=== PATIENT | female | born 1975 | race Two or more races ===

== ENCOUNTER 2017-04-19 15:42 | Emergency (ER) | payer MEDICAID, OTHER ==
[~2017-04-19] VITALS: Ht 165.1 cm; Wt 69.3 kg
[~2017-04-19 15:42] MED LIST: IBUP200C5; SULF-169
[2017-04-19 15:48] VITALS: BP 110/73
[2017-04-19 16:36] LABS: HEMATOCRIT 41.7 % (34.6-47.8); HEMOGLOBIN 13.9 g/dL (11.7-16.4)
[2017-04-19 16:49] LABS: ASPARTATE AMINO TRANSFERASE 14 U/L (15-37); BLOOD UREA NITROGEN 28 mg/dL (7-18)
== END 2017-04-19 18:46 | disposition home or self-care (01) ==
LOC: ED 17:26
DX: K80.50 Calculus of bile duct without cholangitis or cholecystitis without obstruction (principal); Z90.49 Acquired absence of other specified parts of digestive tract; F17.200 Nicotine dependence, unspecified, uncomplicated
CPT/HCPCS: 36415; 76700; 80053; 81003; 83690; 84703; 85025; 99285

== ENCOUNTER 2017-09-15 01:54 | Emergency (ER) | payer MEDICAID, OTHER ==
[2017-09-15] MEDS ORDERED: LORazepam 2 MG/ML, 1ML ONE (02:20)
[2017-09-15] MEDS ORDERED: LORazepam 2 MG/ML, 1ML IM ONE (02:30)
[2017-09-15 04:01] VITALS: BP 104/74
== END 2017-09-15 04:18 | disposition home or self-care (01) ==
LOC: ED 02:41
DX: F41.1 Generalized anxiety disorder (principal); R06.4 Hyperventilation; Z90.49 Acquired absence of other specified parts of digestive tract
CPT/HCPCS: 93005; 96372; 99284; J2060

== ENCOUNTER 2019-07-08 22:50 | Emergency (ER) | payer OTHER ==
[~2019-07-08] VITALS: Ht 157.5 cm; Wt 68.5 kg
[~2019-07-08 22:50] MED LIST changes: +IBUP-1623; -IBUP200C5
[2019-07-08 22:52] VITALS: BP 113/74
[2019-07-08] MEDS ORDERED: PROPARACAINE OPHTH 0.5%, 15ML EACHEYE STA (22:57)
[2019-07-08] MEDS ORDERED: FLUORESCEIN OPHTHALMIC 1 MG STRIP ONE (23:06)
[2019-07-08] MEDS ORDERED: PROPARACAINE OPHTH 0.5%, 15ML ONE (23:06)
[2019-07-08] MEDS ORDERED: HYDROcodone/APAP 5/325 TABLET PO ONE (23:30)
[2019-07-08] MEDS ORDERED: FLUORESCEIN OPHTHALMIC 1 MG STRIP RIGHTEYE ONE (23:30)
[2019-07-08] MEDS ORDERED: HYDROcodone/APAP 5/325 TABLET ONE (23:38)
== END 2019-07-08 23:53 | disposition home or self-care (01) ==
LOC: ED 23:48
DX: H57.11 Ocular pain, right eye (principal)
CPT/HCPCS: 99284

== ENCOUNTER 2020-07-05 12:09 | Emergency (ER) | payer SELFPAY ==
[~2020-07-05] VITALS: Ht 162.6 cm; Wt 67.7 kg
[2020-07-05] MEDS ORDERED: DIPHENHYDRAMINE 50 MG/ML, 1ML IVPush ONE (13:00)
[2020-07-05] MEDS ORDERED: PROCHLORPERAZINE 5 MG/ML, 2ML IVPush ONE (13:00)
[2020-07-05 13:24] LABS: BASOPHILS % (AUTO) 1 % (0-1); EOSINOPHILS % (AUTO) 7 % (1-7); LYMPHOCYTES % (AUTO) 35 % (22-44); MEAN CORPUSCULAR HEMOGLOBIN 29.6 pg (27.0-34.8); MEAN CORPUSCULAR HGB CONC 33.3 g/dL (32.4-35.8); MONOCYTES % (AUTO) 6 % (2-9); NEUTROPHILS % (AUTO) 52 % (42-75); PLATELET COUNT 187 x10^3/uL (130-400); RED BLOOD COUNT 4.66 x10^6/uL (3.82-5.3); RED CELL DISTRIBUTION WIDTH 13.2 % (9.6-15.2)
[2020-07-05 13:25] LABS: MD NO
[2020-07-05 13:33] LABS: ALANINE AMINOTRANSFERASE 18 U/L (12-78); ALBUMIN 3.3 g/dL (3.4-5.0); ANION GAP 3 mmol/L (5-15); CALCIUM 8.6 mg/dL (8.5-10.1); CHLORIDE 111 mmol/L (98-107); CREATININE 0.71 mg/dL (0.55-1.02)
[2020-07-05 13:36] LABS: ALKALINE PHOSPHATASE 77 U/L (45-117); BILIRUBIN,TOTAL 0.5 mg/dL (0.2-1.0); TOTAL PROTEIN 7.3 g/dL (6.4-8.2)
[2020-07-05] MEDS ORDERED: KETOROLAC 30 MG/1 ML IVPush ONE (14:00)
[2020-07-05] MEDS ORDERED: SODIUM CHLORIDE FLUSH 10ML SYR IVF ONE (14:00)
[2020-07-05] MEDS ORDERED: SODIUM CHLORIDE 0.9% 1,000ML IVBOLUS ONE (14:00)
[2020-07-05] MEDS ORDERED: PROCHLORPERAZINE 5 MG/ML, 2ML ONE (14:06)
[2020-07-05] MEDS ORDERED: KETOROLAC 30 MG/1 ML ONE (14:06)
[2020-07-05] MEDS ORDERED: DIPHENHYDRAMINE 50 MG/ML, 1ML ONE (14:06)
--- NOTE | 2020-07-05 14:21 | NUR ---
Pt here for WARE X 7 months. Pt describes pain as sharp, located on R side of head, radiating to neck. No relief.
[2020-07-05] MEDS ORDERED: MORPHINE SULFATE 4 MG/ML, 1ML IVPush PRN (15:30)
--- NOTE | 2020-07-05 15:32 | NUR ---
Pt states pain relief. Refusing any more pain meds at this time. Family at bedside. VS updated.
--- NOTE | 2020-07-05 17:00 | NUR ---
Pt restimg, appears pain free, would like to be dc'd. VS updated.
[2020-07-05 17:53] VITALS: BP 90/59
== END 2020-07-05 17:55 | disposition home or self-care (01) ==
LOC: ED 12:38
DX: G43.711 Chronic migraine without aura, intractable, with status migrainosus (principal); M54.2 Cervicalgia; E78.00 Pure hypercholesterolemia, unspecified; Z90.49 Acquired absence of other specified parts of digestive tract; Z90.710 Acquired absence of both cervix and uterus
CPT/HCPCS: 36415; 70450; 80053; 85025; 96361; 96374; 96375; 99284; J0780; J1200; J1885; J7030

== ENCOUNTER 2020-07-12 05:48 | Emergency (ER) | payer SELFPAY ==
[~2020-07-12] VITALS: Ht 162.6 cm; Wt 68.7 kg
[2020-07-12] MEDS ORDERED: DIAZEPAM 5 MG/ML, 2ML ONE (06:07)
[2020-07-12] MEDS ORDERED: METOCLOPRAMIDE 5 MG/ML, 2ML ONE (06:07)
[2020-07-12] MEDS ORDERED: KETOROLAC 30 MG/1 ML ONE (06:07)
--- NOTE | 2020-07-12 06:25 | NUR ---
PT RESTING IN BED, MEDICATED FOR HEADACHE X1 WEEK, AT BEDSIDE, NO COMPLAINTS
[2020-07-12] MEDS ORDERED: SODIUM CHLORIDE 0.9% 1,000ML IV ONE (06:30)
[2020-07-12] MEDS ORDERED: KETOROLAC 30 MG/1 ML IVPush ONE (06:30)
[2020-07-12] MEDS ORDERED: SODIUM CHLORIDE FLUSH 10ML SYR IVF ONE (06:30)
[2020-07-12] MEDS ORDERED: METOCLOPRAMIDE 5 MG/ML, 2ML IVPush ONE (06:30)
[2020-07-12] MEDS ORDERED: DIAZEPAM 5 MG/ML, 2ML IVPush ONE (06:30)
[2020-07-12] MEDS ORDERED: DEXAMETHASONE 4 MG/ML, 1ML IVPush ONE (07:30)
[2020-07-12 07:50] VITALS: BP 112/75
--- NOTE | 2020-07-12 07:51 | NUR ---
RECVD REPORT FROM PHILLIP KENDRICK, PATIENT RESTING COMFORTABLY. AT BEDSIDE, VERBALIZED NO ADDITIONAL NEEDS
[2020-07-12] MEDS ORDERED: DEXAMETHASONE 4 MG/ML, 5ML ONE (08:03)
--- NOTE | 2020-07-12 08:36 | NUR ---
Patient/Caregiver given discharge instructions and they have confirmed that they understand the instructions. Patient ambulatory with steady gait.
== END 2020-07-12 08:43 | disposition home or self-care (01) ==
LOC: ED 08:00
DX: G44.219 Episodic tension-type headache, not intractable (principal); M54.2 Cervicalgia; R11.0 Nausea; E78.00 Pure hypercholesterolemia, unspecified
CPT/HCPCS: 96361; 96374; 96375; 99284; J1100; J1885; J2765; J3360; J7030